=== PATIENT | female | born 1955 | race Two or more races ===

== ENCOUNTER 2021-05-02 17:27 | Emergency (ER) | payer SELFPAY ==
[~2021-05-02] VITALS: Ht 162.6 cm; Wt 72.7 kg
--- NOTE | 2021-05-02 18:09 | PHYS DOC ---
Past Medical History Past Medical History: No Pertinent History (JUAN MILLS APRN) Past Surgical History: No Surgical History (JUAN MILLS APRN) Smoking Status: Never Smoker Alcohol Use: None Drug Use: None (JUAN MILLS APRN) General Adult EDM: Chief Complaint: SYNCOPE HPI: HPI: Patient is a 65-year-old female that presents today with a syncopal episode on Tuesday and substernal chest pain with shortness of breath since November. Patient is Kyrgyz-speaking only historical interpreter line was used. Patient states that she had her one more during a COVID-19 vaccine in November and since that time she has had an episode of syncope monthly and has had some substernal chest pain with shortness of breath since then. Patient is unable to verbalize today what made it different from Tuesday but she just says that she felt like she was good to faint again today. Patient states she lives alone she denies contact with anyone with COVID-19 symptoms, she denies nausea vomiting or diaphoresis with this pain. Patient denies any past medical history only takes [id number] pain medicine for some left shoulder pain due to arthritis she states. 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 [] Eyes: Denies change in visual acuity. [] HENT: Denies nasal congestion or sore throat. [] Respiratory: shortness of breath, denies cough [] Cardiovascular: chest pain or denies edema. [] GI: Denies abdominal pain, nausea, vomiting, bloody stools or diarrhea. [] : Denies dysuria. [] Musculoskeletal: right shoulder joint pain. [] Integument: Denies rash. [] Neurologic: Denies headache, focal weakness or sensory changes. [] Endocrine: Denies polyuria or polydipsia. [] Lymphatic: Denies swollen glands. [] Psychiatric: Denies depression or anxiety. [] (JUAN MILLS APRN) Heart Score: C/O Chest Pain: Yes HEART Score for Chest Pain: HEART Score for Chest Pain Response (Comments) Value History Slighlty/Non-Suspicious 0 ECG Normal 0 Age >45 - < 65 1 Risk Factors 1 or 2 Risk Factors 1 Troponin < Normal Limit 0 Total 2 Risk Factors: Risk Factors: DM, Current or recent (<one month) smoker, HTN, HLP, family history of CAD, obesity. Risk Scores: Score 0 - 3: 2.5% MACE over next 6 weeks - Discharge Home Score 4 - 6: 20.3% MACE over next 6 weeks - Admit for Clinical Observation Score 7 - 10: 72.7% MACE over next 6 weeks - Early Invasive Strategies (JUAN MILLS APRN) Physical Exam: PE: Constitutional: Well developed, well nourished, mild distress, non-toxic appearance. [] HENT: Normocephalic, atraumatic, bilateral external ears normal, oropharynx moist, no oral exudates, nose normal. [] Eyes: PERRLA, EOMI, conjunctiva normal, no discharge. [] Neck: Normal range of motion, no tenderness, supple, no stridor. [] Cardiovascular:Heart rate regular rhythm with LBBB no murmur, peripheral pulses 2+ in upper and lower extremities, no edema noted, Cap refill < 2secs [] Lungs & Thorax: Bilateral breath sounds clear to auscultation [] Abdomen: Bowel sounds normal, soft, no tenderness, no masses, no pulsatile masses. [] Skin: Warm, dry, no erythema, no rash. [] Back: No tenderness, no CVA tenderness. [] Extremities: Right shoulder pain with palpation Neurologic: Alert and oriented X 3, normal motor function, normal sensory function, no focal deficits noted. [] Psychologic: Affect normal, judgement normal, mood normal. [] (JUAN MILLS APRN) Current Patient Data: Labs: Laboratory Tests Test 05/02/21 18:03 White Blood Count 4.8 x10^3/uL Red Blood Count 4.09 x10^6/uL Hemoglobin 12.2 g/dL Hematocrit 35.9 % Mean Corpuscular Volume 88 fL Mean Corpuscular Hemoglobin 30 pg Mean Corpuscular Hemoglobin Concent 34 g/dL Red Cell Distribution Width 15.4 % Platelet Count 238 x10^3/uL Neutrophils (%) (Auto) 48 % Lymphocytes (%) (Auto) 38 % Monocytes (%) (Auto) 11 % Eosinophils (%) (Auto) 2 % Basophils (%) (Auto) 1 % Neutrophils # (Auto) 2.3 x10^3/uL Lymphocytes # (Auto) 1.8 x10^3/uL Monocytes # (Auto) 0.5 x10^3/uL Eosinophils # (Auto) 0.1 x10^3/uL Basophils # (Auto) 0.0 x10^3/uL Sodium Level 141 mmol/L Potassium Level 4.0 mmol/L Chloride Level 105 mmol/L Carbon Dioxide Level 28 mmol/L Anion Gap 8 Blood Urea Nitrogen 25 mg/dL Creatinine 0.7 mg/dL Estimated GFR (Cockcroft-Gault) 84.0 BUN/Creatinine Ratio 36 Glucose Level 94 mg/dL Calcium Level 8.6 mg/dL Total Bilirubin 0.2 mg/dL Aspartate Amino Transf (AST/SGOT) 26 U/L Alanine Aminotransferase (ALT/SGPT) 30 U/L Alkaline Phosphatase 109 U/L Troponin I Quantitative < 0.017 ng/mL Total Protein 6.8 g/dL Albumin 3.1 g/dL Albumin/Globulin Ratio 0.8 Vital Signs: Vital Signs Date Time Temp Pulse Resp B/P (MAP) Pulse Ox O2 Delivery O2 Flow Rate FiO2 05/02/21 21:09 78 18 136/60 (85) 95 Room Air 05/02/21 20:39 78 15 112/61 (78) 93 Room Air 05/02/21 20:09 80 14 110/56 (74) 93 Room Air 05/02/21 19:39 84 14 98/56 (70) 92 Room Air 05/02/21 19:09 82 17 102/56 (71) 93 Room Air 05/02/21 18:39 78 19 114/58 (76) 94 Room Air 05/02/21 18:09 80 25 120/70 (87) 97 Room Air 05/02/21 17:35 98.3 80 16 128/73 (91) 96 Room Air 98.3 Vital Signs Date Time Temp Pulse Resp B/P (MAP) Pulse Ox O2 Delivery O2 Flow Rate FiO2 05/02/21 17:35 98.3 80 16 128/73 (91) 96 Room Air 98.3 (JUAN MILLS APRN) EKG: EKG: EKG done at [address] Bernal [id number] no STEMI noted sinus rhythm with a left bundle branch block [] (JUAN MILLS APRN) Radiology/Procedures: Radiology/Procedures: PROCEDURE: CHEST AP ONLY XR CHEST 1V INDICATION: chest pain . COMPARISON STUDY: None. FINDINGS: Rotation to the right. Lungs: Hyperexpanded lung volume. Bilateral ill-defined opacities. The tr acheobronchial tree and hilar structures are normal. Pleura: No pleural effusion or pneumothorax. Heart and Mediastinum: Cardiomegaly. Atherosclerosis of the thoracic aorta. IMPRESSION: Bilateral ill-defined opacities, which could relate to interstitial edema or infection. Electronically signed by: Brandan Perez MD (05/02/2021 6:38 PM) [facility] [] (JUAN MILLS APRN) Course & Med Decision Making: Course & Med Decision Making Pertinent Labs and Imaging studies reviewed. (See chart for details) [address] Fonseca, Dilip's Criteria for Pulmonary Embolism was ne gative, will order a BNP due to CXR showing possible edema. [] 2100 patient states she is feeling better vital signs currently are heart rate 77 blood pressure is 112/61 sats are 95%, spoke to patient with historical interpreter at bedside instructed patient to follow-up with her clinic or with the [facility] in [place], patient instructed to return if she has another syncopal episode or starts feeling worse, increased chest pain or shortness of breath, or fever, chills. Patient verbalizes understanding of those instructions through historical interpreter and agrees with plan. (JUAN MILLS APRN) Course & Med Decision Making I have participated in the care of this patient and I have reviewed and agree with all pertinent clinical information above including history, exam, and recommendations. Layla Fonseca DO (LAYLA FONSECA DO) Yogi Disclaimer: Yogi Disclaimer: This electronic medical record was generated, in whole or in part, using a voice recognition dictation system. (JUAN MILLS APRN) Departure Departure Impression: Primary Impression: Syncope, near Disposition: HOME / SELF CARE / HOMELESS Condition: IMPROVED Referrals: LY SCHMITT MD Patient Instructions: Syncope Additional Instructions: Return to the emergency department for increased chest pain, increased shortness of breath, fainting episode, or overall feeling worse Follow-up with [facility] in [place] or with your primary care physician this week. JUAN MILLS APRN May 02, 2021 18:09 LAYLA FONSECA DO May 03, 2021 02:06
[2021-05-02 18:24] LABS: BASO % 1 % (0-3); EOS # 0.1 x10^3/uL (0.0-0.7); EOS % 2 % (0-3); HEMATOCRIT 35.9 % (36.0-47.0); HEMOGLOBIN 12.2 g/dL (12.0-15.5); LYMPH # 1.8 x10^3/uL (1.0-4.8); LYMPH % 38 % (24-48); MEAN CORPUSCULAR HEMOGLOBIN 30 pg (25-35); MEAN CORPUSCULAR HGB CONC 34 g/dL (31-37); MEAN CORPUSCULAR VOLUME 88 fL (79-100); MONO # 0.5 x10^3/uL (0.0-1.1); MONO % 11 % (0-9); NEUT # 2.3 x10^3/uL (1.8-7.7); NEUT % 48 % (31-73); PLATELET COUNT 238 x10^3/uL (140-400); RED BLOOD COUNT 4.09 x10^6/uL (3.50-5.40); RED CELL DISTRIBUTION WIDTH 15.4 % (11.5-14.5); WHITE BLOOD COUNT 4.8 x10^3/uL (4.0-11.0)
[2021-05-02 18:33] LABS: CALCIUM 8.6 mg/dL (8.5-10.1); CREATININE 0.7 mg/dL (0.6-1.0)
[2021-05-02 18:39] LABS: ALBUMIN 3.1 g/dL (3.4-5.0); ALBUMIN/GLOBULIN RATIO 0.8 (1.0-1.7); TOTAL BILIRUBIN 0.2 mg/dL (0.2-1.0); TOTAL PROTEIN 6.8 g/dL (6.4-8.2)
--- NOTE | 2021-05-02 18:41 | RAD ---
XR CHEST 1V INDICATION: chest pain . COMPARISON STUDY: None. FINDINGS: Rotation to the right. Lungs: Hyperexpanded lung volume. Bilateral ill-defined opacities. The tracheobronchial tree and aidan r structures are normal. Pleura: No pleural effusion or pneumothorax. Heart and Mediastinum: Cardiomegaly. Atherosclerosis of the thoracic aorta. IMPRESSION: Bilateral ill-defined opacities, which could relate to interstitial edema or infection. Electronically signed by: Brandan Perez MD (05/02/2021 6:38 PM) [facility]
[2021-05-02 21:09] VITALS: BP 136/60
--- NOTE | 2021-05-03 01:02 | EKG ---
[facility] [address] [place] [address] Test Date: 2021-05-02 Test Time: 17:38:00 Pat Name: DESTINI REYES Department: Room: Gender: F Copy Machine Operator: : [id number] Requested By: JUAN MILLS Order Number: [id number] Reading MD: Yosef Crump MD Measurements Intervals Handley Rate: 80 P: -4 UT: 188 QRS: -19 QRSD: 156 T: 116 QT: 432 QTc: 502 Interpretive Statements SINUS RHYTHM LEFTWARD AXIS LEFT BUNDLE BRANCH BLOCK Electronically Signed On 05-04-2021 8:53:22 CDT by Yosef Crump MD
== END 2021-05-02 21:31 | disposition home or self-care (01) ==
LOC: ER 17:27
DX: R55 Syncope and collapse (principal); R07.2 Precordial pain; R06.02 Shortness of breath
CPT/HCPCS: 36415; 71045; 80053; 83880; 84484; 85025; 93005; 99285-25